=== PATIENT | female | born 2000 | race African-American/Black ===

== ENCOUNTER 2021-12-03 15:46 | Emergency (ER) | payer OTHER ==
[~2021-12-03] VITALS: Ht 174 cm; Wt 105.0 kg
[2021-12-03 16:35] VITALS: BP 154/91
[2021-12-03 17:02] LABS: BASOPHILS % 0.5 % (0.0-2.0); EOSINOPHILS % 0.8 % (0.0-5.0); HEMATOCRIT. 36.8 % (36.0-48.0); HEMOGLOBIN. 12.2 g/dL (12.0-16.0); LYMPHOCYTES % 33.3 % (20.0-50.0); MEAN CORPUSCULAR HEMOGLOBIN 28.4 pg (28.0-32.0); MEAN CORPUSCULAR VOLUME 85.9 fL (81.0-99.0); MEAN PLATELET VOLUME 9.4 fl (7.4-10.4); MONOCYTES % 9.6 % (2.0-8.0); NEUTROPHILS % 55.8 % (40.0-76.0); PLATELET 262 x1000/uL (130-400); RED BLOOD CELL COUNT 4.28 mill/uL (4.2-5.4); RED CELL DISTRIBUTION WIDTH 13.1 % (11.6-14.6)
[2021-12-03 17:08] LABS: CHLORIDE 105 mEq/L (98-107)
[2021-12-03 17:30] LABS: B-HCG QUANTITATIVE 53968 mIU/mL (<3)
[2021-12-03 18:00] LABS: CLARITY URINE CLEAR (CLEAR); COLOR URINE YELLOW (YELLOW); KETONES URINE 3+ (NEGATIVE); LEUKOCYTE ESTERASE URINE NEGATIVE (NEGATIVE); NITRITE URINE NEGATIVE (NEGATIVE); OCCULT BLOOD URINE NEGATIVE (NEGATIVE); PH URINE 6.5 (4.5-8.0); PROTEIN URINE NEGATIVE (NEGATIVE); SPECIFIC GRAVITY URINE 1.025 (1.005-1.030); UROBILINOGEN URINE 0.2 E.U./dL (0.2-1.0)
[2021-12-03] MEDS ORDERED: PREN-52 MT (19:17)
== END 2021-12-03 19:51 | disposition home or self-care (01) ==
LOC: ER 15:46
DX: O20.0 Threatened abortion (principal); Z3A.01 Less than 8 weeks gestation of pregnancy
CPT/HCPCS: 36415; 76801; 80053; 81003; 84702; 85025; 86850; 86900; 99284

== ENCOUNTER 2022-08-01 11:55 | Inpatient (IN) | payer OTHER ==
[~2022-08-01] VITALS: Ht 165.1 cm; Wt 120.2 kg
[~2022-08-01 11:55] MED LIST: LIDOCAINE HCL 2%/EPINEPHRINE 1:100,000 20 ML VIAL INFIL ONE; PREN-52 MT
[2022-08-01] MEDS ORDERED: LIDOCAINE HCL 1% 20ML VIAL (Pyxis) INJ INFIL SCH (13:00)
[2022-08-01] MEDS ORDERED: OXYTOCIN 30 UNITS/500ML NS PMX 500 ML IV SCH (13:00)
[2022-08-01] MEDS ORDERED: NALOXONE HCL 0.4 MG/ML 1ML VIAL IM PRN (13:00)
[2022-08-01] MEDS ORDERED: MISOPROSTOL 100MCG TABLET VG SCH (14:45)
[2022-08-01] MEDS ORDERED: MINERAL OIL 30ML BOTTLE PO NR (14:45)
[2022-08-01] MEDS: LACTATED RINGERS 1,000 ML IV SCH ×2 (14:58→19:52)
[2022-08-01 15:09] LABS: BASOPHILS % 0.3 % (0.0-2.0); EOSINOPHILS % 0.7 % (0.0-5.0); HEMATOCRIT. 30.5 % (36.0-48.0); HEMOGLOBIN. 10.1 g/dL (12.0-16.0); LYMPHOCYTES % 15.1 % (20.0-50.0); MEAN CORPUSCULAR HEMOGLOBIN 25.6 pg (28.0-32.0); MEAN CORPUSCULAR VOLUME 77.1 fL (81.0-99.0); MEAN PLATELET VOLUME 9.1 fl (7.4-10.4); MONOCYTES % 8.4 % (2.0-8.0); NEUTROPHILS % 75.5 % (40.0-76.0); PLATELET 211 x1000/uL (130-400); RED BLOOD CELL COUNT 3.96 mill/uL (4.2-5.4)
[2022-08-01 15:25] LABS: CHLORIDE 105 mEq/L (98-107)
[2022-08-01 15:26] LABS: INR 0.9; PARTIAL THROMBOPLASTIN TIME 29.9 sec (23.4-31.0); PROTHROMBIN TIME 10.1 sec (9.6-11.0)
[2022-08-01 15:27] LABS: CLARITY URINE CLEAR (CLEAR); COLOR URINE DARK YELLOW (YELLOW); KETONES URINE TRACE (NEGATIVE); LEUKOCYTE ESTERASE URINE NEGATIVE (NEGATIVE); NITRITE URINE NEGATIVE (NEGATIVE); OCCULT BLOOD URINE 3+ (NEGATIVE); PH URINE 6.5 (4.5-8.0); PROTEIN URINE 2+ (NEGATIVE); SPECIFIC GRAVITY URINE 1.024 (1.005-1.030)
[2022-08-01 15:58] LABS: HEPATITIS B SURFACE ANTIGEN NEGATIVE
[2022-08-01 16:32] LABS: FIBRINOGEN > 850 mg/dL (200-400)
[2022-08-01 16:52] LABS: *AMPHETAMINES SCREEN URINE NEGATIVE (NEGATIVE); *BARBITURATES SCREEN URINE NEGATIVE (NEGATIVE); *BENZODIAZEPINES SCREEN URINE NEGATIVE (NEGATIVE); *COCAINE SCREEN URINE NEGATIVE (NEGATIVE); CANNABINOID URINE SCREEN NEGATIVE (NEGATIVE); METHADONE URINE SCREEN NEGATIVE (NEGATIVE); OPIATES URINE SCREEN NEGATIVE (NEGATIVE); PHENCYCLIDINE URINE SCREEN NEGATIVE (NEGATIVE)
[2022-08-01] MEDS: BUTORPHANOL TARTRATE 2 MG/ML VIAL IV PRN ×2 (17:35→19:36)
[2022-08-01] MEDS ORDERED: ROPIVACAINE HCL/PF EPIDURAL 200 ML EPI ONE (21:24)
[2022-08-01] MEDS ORDERED: CEFAZOLIN SODIUM 1000MG/VIAL ONE (23:38)
[2022-08-01] MEDS ORDERED: METOCLOPRAMIDE HCL 10MG/2ML VIAL ONE (23:38)
[2022-08-01] MEDS ORDERED: DEXAMETHASONE 4MG/ML 1ML VIAL ONE (23:38)
[2022-08-01] MEDS ORDERED: OXYTOCIN 10 UNITS/ML 1ML ONE (23:38)
[2022-08-01] MEDS ORDERED: ONDANSETRON HCL 4MG/2ML INJ ONE (23:38)
[2022-08-01] MEDS ORDERED: PROPOFOL 200MG/20ML VIAL IV ONE (23:55)
[2022-08-02] MEDS ORDERED: PROPOFOL 200MG/20ML VIAL IV ONE (00:14)
[2022-08-02] MEDS ORDERED: KETOROLAC 60MG/2ML VIAL IM ONE (00:14)
[2022-08-02] MEDS ORDERED: MORPHINE SULFATE/PF 1MG/ML 10ML AMP ONE (00:14)
[2022-08-02] MEDS ORDERED: MORPHINE SULFATE 10 MG/ML CPJ IV PRN (01:00)
[2022-08-02] MEDS ORDERED: FENTANYL CITRATE/PF 50MCG/ML 2ML VIAL IV PRN (01:00)
[2022-08-02] MEDS ORDERED: NALOXONE HCL 0.4 MG/ML 1ML VIAL IV PRN (01:00)
[2022-08-02] MEDS ORDERED: FENTANYL CITRATE/PF 50MCG/ML 2ML VIAL ONE (01:05)
[2022-08-02] MEDS ORDERED: RHO(D) IMMUNE GLOBULIN 300 MCG/SYR IM PRN (01:15)
[2022-08-02] MEDS ORDERED: IBUPROFEN 400MG TABLET PO PRN (01:15)
[2022-08-02] MEDS ORDERED: HYDROCODONE/ACETAMINOPHEN 5/325MG TABLET PO PRN (01:15)
[2022-08-02] MEDS ORDERED: OXYTOCIN 30 UNITS/500ML NS PMX 500 ML IV SCH (01:15)
[2022-08-02] MEDS ORDERED: DIPHENHYDRAMINE 25MG CAPSULE PO PRN (01:15)
[2022-08-02] MEDS ORDERED: LANOLIN OINT 7GM TUBE TOP PRN (01:15)
[2022-08-02] MEDS ORDERED: BISACODYL 10MG SUPP PR PRN (01:15)
[2022-08-02] MEDS ORDERED: ONDANSETRON HCL 4MG/2ML INJ IV PRN (01:15)
[2022-08-02 03:00] VITALS: BP 111/66
[2022-08-02] MEDS: KETOROLAC 30MG/ML VIAL IV SCH ×3 (05:50→17:51)
[2022-08-02 08:00] VITALS: BP 120/74
[2022-08-02] MEDS: PRENATAL VIT/FE FUMARATE/FA TABLET PO SCH (09:00)
[2022-08-02 12:00] VITALS: BP 126/78
[2022-08-02] MEDS: SILVER SULFADIAZINE 1% CREAM 50GM TOP SCH (13:00)
[2022-08-02 16:00] VITALS: BP 121/77
[2022-08-02 20:00] VITALS: BP 105/59
[2022-08-02] MEDS: DOCUSATE SODIUM 100MG CAPSULE PO SCH (20:35)
[2022-08-03 04:00] VITALS: BP 121/79
[2022-08-03 08:22] LABS: BASOPHILS % 0.5 % (0.0-2.0); EOSINOPHILS % 0.9 % (0.0-5.0); HEMATOCRIT. 22.9 % (36.0-48.0); HEMOGLOBIN. 7.4 g/dL (12.0-16.0); LYMPHOCYTES % 27.6 % (20.0-50.0); MEAN CORPUSCULAR HEMOGLOBIN 25.4 pg (28.0-32.0); MEAN CORPUSCULAR VOLUME 78.1 fL (81.0-99.0); MEAN PLATELET VOLUME 8.7 fl (7.4-10.4); MONOCYTES % 8.7 % (2.0-8.0); NEUTROPHILS % 62.3 % (40.0-76.0); PLATELET 180 x1000/uL (130-400); RED BLOOD CELL COUNT 2.93 mill/uL (4.2-5.4); RED CELL DISTRIBUTION WIDTH 15.1 % (11.6-14.6)
[2022-08-03 08:30] VITALS: BP 140/99
[2022-08-03] MEDS: PRENATAL VIT/FE FUMARATE/FA TABLET PO SCH (08:45)
[2022-08-03] MEDS: HYDROCODONE/ACETAMINOPHEN 5/325MG TABLET PO PRN ×3 (08:48→19:21)
[2022-08-03] MEDS: SILVER SULFADIAZINE 1% CREAM 50GM TOP SCH (08:52)
[2022-08-03 09:45] VITALS: BP 112/74
[2022-08-03 10:07] LABS: HIV SCREEN 4G Non Reactive (Non Reactive)
[2022-08-03 15:30] VITALS: BP 122/80
[2022-08-03] MEDS: DOCUSATE SODIUM 100MG CAPSULE PO SCH (19:22)
[2022-08-03 20:00] VITALS: BP 141/91
[2022-08-04] VITALS: BP 128/78
[2022-08-04] MEDS: HYDROCODONE/ACETAMINOPHEN 5/325MG TABLET PO PRN ×2 (01:03→07:22)
[2022-08-04 04:01] VITALS: BP 122/80
[2022-08-04 08:20] VITALS: BP 134/86
[2022-08-04] MEDS: PRENATAL VIT/FE FUMARATE/FA TABLET PO SCH (08:41)
[2022-08-04] MEDS: SILVER SULFADIAZINE 1% CREAM 50GM TOP SCH (08:43)
[2022-08-04] MEDS ORDERED: FERR325T6 MT (09:31)
[2022-08-04] MEDS ORDERED: IBUP-2028 PO (09:31)
== END 2022-08-04 12:10 | disposition home or self-care (01) | DRG 540 ==
LOC: UNDOADMOB 11:55 → 8 EST LDRP 11:55 → OBSVTOIN 12:00 → 8EST 08-02 03:13
PROVIDERS: ADMIT Obstetrics & Gynecology; ATTEND Obstetrics & Gynecology
PROC: 10D00Z1 Extraction of Products of Conception, Low, Open Approach (ICD-10-PCS; principal; 2022-08-02)
DX: O76 Abnormality in fetal heart rate and rhythm complicating labor and delivery (principal); O99.214 Obesity complicating childbirth; O48.0 Post-term pregnancy; O99.02 Anemia complicating childbirth; O77.0 Labor and delivery complicated by meconium in amniotic fluid; Z37.0 Single live birth; Z20.822 Contact with and (suspected) exposure to COVID-19; Z68.41 Body mass index [BMI] 40.0-44.9, adult; Z3A.49 Greater than 42 weeks gestation of pregnancy
CPT/HCPCS: 36415; 76805; 76818; 80053; 80305; 81003; 84550; 85025; 85384; 86592; 86762; 86850; 86900; 87340; 87389; 87426; 88307; 99281; G0378; J0595; J0690; J1100; J1885; J2274; J2405; J2704; J2765; J2795; J3010; J3490; J7120; A4315; J2590